=== PATIENT | male | born 1940 | race Caucasian/White ===

== ENCOUNTER 2019-10-24 11:54 | Emergency (ER) | payer OTHER ==
[~2019-10-24] VITALS: Ht 180.3 cm; Wt 83.5 kg
[2019-10-24] MEDS ORDERED: AUGMENTIN 875-1 EACH PO (12:54)
== END 2019-10-24 13:08 | disposition home or self-care (01) ==
LOC: ED 11:54
DX: S51.852A Open bite of left forearm, initial encounter (principal); S51.812A Laceration without foreign body of left forearm, initial encounter; E11.9 Type 2 diabetes mellitus without complications; Z87.891 Personal history of nicotine dependence; Z88.5 Allergy status to narcotic agent; W54.0XXA Bitten by dog, initial encounter
CPT/HCPCS: 12002; 90471; 90715; 99283-25

== ENCOUNTER 2021-10-19 05:58 | Inpatient (IN) | payer OTHER ==
[~2021-10-19] VITALS: Ht 180.3 cm; Wt 75.8 kg
--- NOTE | ~2021-10-19 | EKG ---
[facility] [address] [facility] [place], [place] [address] Draft EK completed, results pending confirmation PATIENT NAME: BILLYFRANCISCO LEO Electrocardiogram DATE OF : 38 PHYSICIAN: PRELIMINARY REPORT #: [id number] REPORT IS CONFIDENTIAL AND NOT TO BE RELEASED WITHOUT AUTHORIZATION
[~2021-10-19 05:58] MED LIST: AUGMENTIN 875-1 EACH PO
[2021-10-19] MEDS ORDERED: INSULIN AS100 UNIT/1 SUB-Q (06:25)
[2021-10-19] MEDS ORDERED: LANTUS100 UNITS/ SUB-Q (15:01)
--- NOTE | 2021-10-19 15:22 | NUR ---
medications reconciled. [facility], patient only uses glargine insulin as his sole medication
--- NOTE | 2021-10-19 16:04 | NUR ---
CALL TO DR. DUBOIS RE: PATIENT DIET. PATIENT IS ABLE TO TOLERATE SPOONS OF HONEY THICK WATER WHILE SITTING AT A 90 DEGREE ANGLE, OCCASIONAL COUGH. PATIENT IS TO REMAIN NPO FOR ST EVAL, CONTINUE IVF.
--- NOTE | 2021-10-19 18:02 | NUR ---
New admit from ER. DNR/DNI. Brought in by EMS with increasing weakness, N/V and fever for last 2 days. High BP on arrival. Anti nausea meds administered in ED. 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 CT abd/pelvis: gastric wall thickening (possibly gastritic). Protonix IV ordered. UA and resp panel negative. NSR with PVCs. Pt will have ECHO tomorrow to evaluate for cardiac origin of stroke. NIH=6. Pt seems to be leaning to R. Equal strenght in all 4 extremities. Positive for dysphagia and expressive aphasia. Follows all commands and responds to yes/no questions. At baseline Pt ambulated with cane and did not use O2 at home. NS at 100 ml/hr to R AC IV. wants to continue IVF despite elevated BP (to ensure hyperprefusion of the brain). Pt uses urinal. No BM today. Pt failed swallow eval. NPO until ST eval. BG was 363 at 5 pm. MRI of the head done and shows b/l cerebellar infarcts and few lacunar infarcts. Lovenox for anticoagulation.
--- NOTE | 2021-10-19 19:30 | NUR ---
RECEIVED REPORT FROM DAY SHIFT RN. PATIENT IS RESTING IN BED. NO NEEDS NOTED. BED ALARM ON FOR SAFETY.
--- NOTE | 2021-10-19 20:00 | NUR ---
PT REQUESTING THE TV OFF, ATTEMPT TO USE THE URINAL, RN NOW IN THE RM, VS TAKEN, ROOM STRAIGHTENED UP, ACCU CHECK ALSO COMPLETED AT THIS TIME
--- NOTE | 2021-10-19 20:20 | NUR ---
PATIENT ASSESMENT COMPLETED. PATIENT HAS GEN WEAKNESS NOTED. EXP APHASIA NOTED. PATIENT IS ON RA. ORAL CARE COMPLETED. BS CHECK AND SS PER ORDER. PATIENT IS ON TELE #6, SR. IV INFUSING PER ORDER. PATIENT REMAINS NPO AWAITING SPEECH EVAL. NO FURTHER NEEDS NOTED. CALL LIG IN REACH. BED ALARM ON FOR SAFETY.
--- NOTE | 2021-10-19 23:37 | NUR ---
PATIENT ASSISTED TO THE BSC A 2PA. PATIENT ABLE TO VOID. PATIENT IS VERY WEAK AND STRUGGLES TO FOLLOW DIRECTIONS. PATIENT IS BACK IN BED RESTING. IV INFUSING PER ORDER. CALL LIGHT IN REACH. BED ALARM ON FOR SAFETY.
--- NOTE | 2021-10-20 00:54 | NUR ---
PATIENT IS RESTING IN BED WITH EYES CLSOED, RR 17. CALL LIGHT IN REACH. BED ALARM ON FOR SAFETY.
--- NOTE | 2021-10-20 01:26 | NUR ---
PATIENT ASSISTED TO THE BSC A 2PA. PATIENT ABLE TO VOID. PATIENT IS BACK IN BED RESTING. PATIENTS CALL LIGHT IN REACH. BED ALARM ON FOR SAFETY.
--- NOTE | 2021-10-20 04:03 | NUR ---
PATIENT ASSISTED TO THE BSC A 2PA. PATIENT UNABLE TO VOID, INCONT OF URINE. PATIENT IS BACK IN BED RESTING. PATIENT HAD BOUT OF EMESIS. BEDDING CHANGED. NO FURTHER NEEDS NOTED. CALL LIGHT IN REACH. BED ALARM ON FOR SAFETY.
--- NOTE | 2021-10-20 05:33 | NUR ---
PATIENTS VITALS TAKEN AND RECORDED. PATIENT INCONTINENT OF URINE. PATIENTS ATTEND [facility] AND [facility] CARE COMPLETED. PATIENT CONTINUES TO HAVE EXP APHASIA. ORAL CARE COMPLETED. PATIENT REMAINS NPO PENDING SPEECH THERAPY EVAL. NO FURTHER NEEDS NOTED. CALL LIGHT IN REACH. BED ALARM ON FOR SAFETY.
--- NOTE | 2021-10-20 06:11 | NUR ---
NEW IV STARTED. PATIENT TOLERATED ACITIVY WELL. NO NEEDS NOTED. CALL LIGHT IN REACH.
--- NOTE | 2021-10-20 07:46 | NUR ---
Patient in bed sleeping, respirations even and non labored. No notable distress. Bed alarm intact. Personal supplies and call light within reach.
--- NOTE | 2021-10-20 09:28 | NUR ---
PT IS LAYING IN BED IN ROOMM. I&O AND VS CHARTED CALL LIGHT WITHIN REACH NO FURTHER TASKS AT THIS TIME
--- NOTE | 2021-10-20 10:30 | NUR ---
Patient resting in bed on right lateral side, respirations even and non labored. Patient has no distress. at bedside reading. Bed alarm remains intact. reports she will be here in hospital visiting with her for the day. Call light within reach.
--- NOTE | 2021-10-20 12:49 | NUR ---
got pt up in chair for meal. pt was having trouble feeding self, offered to help pt, pt declined. pt didnt want to eat anymore, seemed frustrated. got pt back into bed. call light within reach no further tasks at this time. in room
--- NOTE | 2021-10-20 14:19 | NUR ---
Patient working with physical therapy at edge of bed. Patient stood with for short period, two person assist using gait belt and fww. Patient has difficulty grasping items, appears to have impaired fine motor skills. remains at bedside assisting with cares. IV site patent, fluids infusing per provider order. Patient does not display discomfort or pain. No current needs. Personal supplies and call light within reach.
--- NOTE | 2021-10-20 17:16 | NUR ---
Oral care provided. Offered patient water, pt declined to drink. Patient back to sleep at this time. Bed alarm intact. No current needs. went home for the evening.
--- NOTE | 2021-10-20 18:47 | NUR ---
Spoke with pts spouse Bev. Yen Childress would like pt to go to a SNF. She declines and states she and her son will take care of pt. They live in a mobile home with 8 steps, She does not see this as a problem as they have friends to help him get into the home. She and son have been caring for him for a while as he has been weak.They have 3 walkers. She denies need for other equipment. She feels their only needs are for a ramp and possible help from [employer] in the future. Gave her the web site for [employer] and [employer]'s phone number for the future. She states they are financially ok at this time. Adult son lives with them and will assist her as needed. She drives, grocery shops, and does the household tasks. They would like HH on dc and Dr. Silva notified.
--- NOTE | 2021-10-20 20:04 | NUR ---
PT CALLED FOR HELP USING URINAL. 2PA WITH FWW TO HAVE PT STAND AND ASSIST IN USING URINAL. PT VOIDED, BEDDING CHANGED AND PT IS NOW BACK IN BED WITH CLEAN ATTENDS IN PLACE. PT DENIES FURTHER NEEDS. CALL LIGHT IS CLOSE AND BED ALARM IS ON.
--- NOTE | 2021-10-20 20:40 | NUR ---
CCU CALLED, PTS TELE LEADS WERE REMOVED BY PT. REPLACED TELE LEADS AND PLACED NEW BATTERY IN TELE. PT DENIES NEEDS, CALL LIGHT IS CLOSE AND BED ALARM IS ON.
--- NOTE | 2021-10-20 21:29 | NUR ---
PT IN BED, MUTE AT TIMES, GARBLED SPEECH, FOLLOWED INSTRUCTINS. ON ROOM AIR, TELE#[address], SR W OCC PVC'S, DENIES CP WHEN ASKED, MOVES ALL EXTREMITEIS VERY WELL IN BED, DID ASKED FOR URINAL EARLIER AT BEGINING OF SHIFT. INCONTINENT OF URINE, ATTENDS CHANGED. IV INFUSING LH, IVF INFUSING W/O PROBLEMS, BED ALARM ON, CALL LIHGT AT HANDS REACH. ON MILD THICKENED LIQUIDS MINCED MOIST FOODS
--- NOTE | 2021-10-20 21:30 | NUR ---
in to assist rn with vitals, accu check, pt incont of urine, nargis care and new attends provided, bed alarm remains in place, no further needs at this time
--- NOTE | 2021-10-20 23:45 | NUR ---
call light on, pt requested hob raised, water topped off, no further needs at this time, bed alarm is on
--- NOTE | 2021-10-21 00:46 | NUR ---
EYES CLOSED, NO DISTRESS, ONROOM AIR, IVF INFUSING W/O PROBLEMS, TURNS AND REPOSITIONS SELF, MOVES ALL EXTREMITIES, TELE#[address]
--- NOTE | 2021-10-21 02:55 | NUR ---
CBG 131, NO COVERAGE NEEDED. WAS INCONTIENT OF URINE, ATTENDS CHANGED, PLUS VOIDED SMALL AMOUNT URINAL. HOB ELEVATED, ON ROOM AIR, TELE#[address] SR WITH OCCASSIONAL SVPB'S, DENIES CP. COOP WITH ASSESSMENT. C/O H/A, MEDICATED WITH TYLENOL, CRUSHED IN PUDING. L SIDED DROOP PRESENT, HOB ELEVATED, MOIST NON PRODUCTIVE COUGH PRESENT AFTER TAKING MEDS, WIPED OWN MOUTH. EXTENDED HAND TOWARDS WATER. TOOK SEVERAL TRIES BUT ABLE TO DRINK THICKENED FLUIDS. GARBLED SPEECH PRESENT. MOVES ALL EXTREMITIES WELL. BED ALARM ON
--- NOTE | 2021-10-21 05:42 | NUR ---
Pt neuro checks w/o changes. on room air, continues to have L sided weaknes and facial droop, garbled speech, unable to swallow from L side of mouth, required several tries from R side. tele#[address], SR with occ PVC's. follows instructions sometimes, very uncoordinated LE and unsteady uncoordinated gait, was incontinent of urine and used urinal. IVF infusing. Bed alrm inplace, strong LE and arm movement, but unable to follow instructions for NIH assessments, Bed alarm in place
--- NOTE | 2021-10-21 05:55 | NUR ---
BED ALARM SET OFF, PT NEEDED THE URINAL, VS TAKEN, NEW ATTENDS IN PLACE, NO FURTHER NEEDS, BED ALARM IS SET
--- NOTE | 2021-10-21 07:32 | NUR ---
Patient in bed sleeping, respirations even and non labored. No notable distress. Bed alarm intact. Personal supplies and call light within reach. Close to RN station.
--- NOTE | 2021-10-21 09:54 | NUR ---
ADMINISTERED ZOFRAN BEFORE BREAKFAST PER ORDERS. ASSISTED AND OBSERVED PATIENT WITH BREAKFAST. ENCOURAGED PO INTAKE. FOLLOWED ASPIRATION PRECAUTIONS. PATIENT TOLERATED WELL WITH NO REPORTED NAUSEA OR VOMITING. WILL CONTINUE TO ADMINISTER ZOFRAN BEFORE MEALS, ENCOURAGE PO INTAKE, AND MONITOR FOR NAUSEA AND VOMITING. ASSISTED PATIENT WITH A FULL BED BATH, BRIEF CHANGE, AND REPLACED ALL LINENS WITH CLEAN LINENS. PATIENT TOLERATED WELL. FAMILY AT THE BEDSIDE. SN VARUN
--- NOTE | 2021-10-21 10:50 | NUR ---
Patient's speech has improved today, this RN able to understand what he is saying for the most part. Patient denies pain. Student nurse assisted pt with breakfast, per her report he tolerated small portions well. Patient's upper/lower cooling pan tender are equal/strong. Patient able to follow directions with prompting. IV site patent, fluids infusing per provider order. at bedside visiting and assisting with cares. No needs at this time. Personal supplies and call light within reach.
--- NOTE | 2021-10-21 11:36 | NUR ---
Clear ensure provided to patient, pt refused to drink. Patient requesting all lights off, turned one off and kept one on, education provided to pt and regarding staying on a good sleep schedule, understanding. Patient tired this afternoon, requesting to take a nap. No curent needs. Personal supplies and call light within reach.
--- NOTE | 2021-10-21 12:36 | NUR ---
Patient has not yet voided this morning. Bladder scan done, 503ml noted. Dr. Silva updated. No new orders, will continue to monitor.
--- NOTE | 2021-10-21 12:45 | NUR ---
CALL RECVD FROM VENESSA RN, PATIENTS AND DAUGHTER WISHING TO DISCUSS PLACEMENT OPTIONS. THIS RN DOWN TO ROOM. PATIENT LEE AND DAUGHTER AT BEDSIDE. PATIENT BEING ASSISTED UP TO CHAIR BY SHELLI DONOHUE AND SD GUARDADO. PATIENT STATES SHE FEELS THAT SHE WILL BE UNABLE TO CARE FOR THE PATIENT AFTER DISCHARGE. STATES SHE THOUGHT SHE WOULD BE ABLE TO PROVIDE CARE, BUT HAS REALIZED SHE CANNOT. DAUGHTER APPEARS TO BE IN AGREEMENT. LIST OF SNFS PROVIDED. PATIENT WOULD LIKE FOR PATIENT TO GO TO [facility] IT IS CLOSE ENOUGH FOR HER TO VISIT. DISCUSSED THAT MEDICARE WILL PAY FOR THE FIRST 20 DAYS OF THE PATIENT STAY , THEN THE SNF WILL EVALUATED THE PATIENT TO SEE IF FURTHER CARE IS NEED. AND DAUGHTER AGREED TO THIS PLAN, I WILL FAX CHART TO [facility] FOR REVIEW. DR. DUBOIS UPDATED.
--- NOTE | 2021-10-21 13:20 | NUR ---
PT IS LAYING IN BED AND DAUGHTER AT BEDSIDE. VITALS CHARTED. CALL LIGHT WITHIN REACH
--- NOTE | 2021-10-21 15:03 | NUR ---
Patient has urinary retention, voided 150ml, bladder scanned post void for [address] Silva ordered a maynard cath to be placed. Maynard catheter placed using sterile technique. Urojet used for comfort. Immediate return of 600ml yellow urine noted. Patient Tolerated well.
--- NOTE | 2021-10-21 16:45 | NUR ---
Patient reports he is nauseated. Cool cloth provided, hob elevated. Scheduled zofran 4mg odt admin.
--- NOTE | 2021-10-21 17:19 | EKG ---
[facility] [address] [facility] [place] [address] Signed Sinus rhythm with 1st degree AV block with occasional premature ventricular complexes Inferior infarct (cited on or before 19-OCT-2021) Abnormal ECG When compared with ECG of 19-OCT-2021 11:16, (Unconfirmed) premature supraventricular complexes are no longer present Confirmed by IGNACIO DUBOIS MD ([id number]) on 10/21/2021 5:18:58 PM Electronically Signed By: IGNACIO DUBOIS MD 10/21/21 1719 PATIENT NAME: FRANCISCO CERVANTES Electrocardiogram DATE OF : 38 PHYSICIAN: IGNACIO DUBOIS MD REPORT #: [id number] REPORT IS CONFIDENTIAL AND NOT TO BE RELEASED WITHOUT AUTHORIZATION
--- NOTE | 2021-10-21 21:30 | NUR ---
pt eyes closed, turns and repositions self very frequently in bed. la iv site patent, IVF infusing w/o problems. coop eith assessment, on room air, dim lungs at bases, facial dysphagia, on thickened liquids, meds given with pudin, hob elevated. rash noted r shoulder, and chest whenre old tele pads were. denies c/o itching. f/c in place, not chronic. pt fidgety, follows instrucctions. Bed alarm on
--- NOTE | 2021-10-21 23:15 | NUR ---
FIDGETTY IN BED, TURNS AND REPOSITIONS VERY OFTEN, IVF INFUSING, F/C PATENT BED ALARM ON, FOLLOWS INSTRUCTIONS, GARBLED SPEECH
--- NOTE | 2021-10-22 01:32 | NUR ---
RESTLESS AND FIDGETTY IN BED, GARBLED SPEECH, ON ROOM AIR, IVF INFUSING F/C PATENT, TOOK GOWN AND ATTENDS OFF. ALLEVYN TO COCCYX IN PLACE. ASPIRATION AND FALL PRECAUTIONS IN PLACE. BED ALARM ON
--- NOTE | 2021-10-22 02:50 | NUR ---
IN TO GET ACCU CHECK, NO FURTHER NEEDS AT THIS TIME, BED ALARM SET
--- NOTE | 2021-10-22 02:54 | NUR ---
PT FIDGETTY IN BED, TURNS AND REPOSITIONS VERY FREQUENTLY, TOOK GOWN AND ATTENDS OFF. RASH NOTED EARLIER R SHOULDER AND OLD TELE PADS IMPROVING. IVF INFUSING LFA, F/C PATENT, DRAINING CLEAR YELLOW URINE. ALLEVYN TO COCCCYX INTACT. GARBLED SPEECH, HOB ELEVATED TO COMFORT, ON ROOM AIR, COOP WITH ASSESMENT, PLEASANTLY CONFUSED. FOLLOWS INSTRUCTIONS
--- NOTE | 2021-10-22 03:00 | NUR ---
CALL LIGHT ON, PT GRABBING FOR EMESIS BAG, QUESTIONED PT ABOUT HAVING NAUSA, PT INDICATING YES, COOL WASH CLOTH PROVIED, RN INFORMED
--- NOTE | 2021-10-22 03:15 | NUR ---
PT C/O FEELING NAUSEATED, RESTLESS IN BED, DENIES C/O PAIN. MEDICATED WITH ZOFRAN, CBG 144 RECEIVED 1 UNIT SS INSULIN. IVF INFUSING. PULLING AT F/C, PATENT
--- NOTE | 2021-10-22 04:59 | NUR ---
Pt continues to be on room air, dim lungs sounds at bases, garbled speech, tolerating thickened liquids, took meds with puding, hob elevated. Was medicated with Tylenol per h/a and zofran per c/o n/v, no emesis. f/c patent, draining QS, pt has been pulling off and on, instructed not to, follows instructions sometimed, IVF infusing w/o problems, Bed alarm on
--- NOTE | 2021-10-22 08:44 | NUR ---
Patient tolerated a few bites of eggs, pudding and a couple sips of milk. Patient requesting to lay back down after eating. Patient reports he continues to be nauseated and dizzy. Patient requesting for lights to be off as he states the light bothers his eyes. Pt following commands, speech notably improved. Close to RN station. Call light within reach, bed alarm intact.
--- NOTE | 2021-10-22 10:56 | NUR ---
Patient's and daughter at bedside visiting and helping with cares. Patient resting with no distress at this time. No needs at this time. Call light within reach.
--- NOTE | 2021-10-22 12:45 | NUR ---
Patient repositioned at this time. Tried to get patient to drink water, pt declined. and daughter at bedside. No needs at this time.
--- NOTE | 2021-10-22 17:23 | NUR ---
Patient resting in bed, no distress. Patient remains on room air, respirations even and non labored. Patient's iv and maynard are patent. Offered patient to drink water, he declined. Bed alarm remains intact. Personal supplies and call light within reach.
--- NOTE | 2021-10-22 17:55 | NUR ---
REPORT RECEIVED FROM ELIAZAR RN - ASSUMING CARE TILL END OF SHIFT. PT ASLEEP ON SIDE IN BED - NO DISTRESS NOTED. PT STATES "NO" WHEN ASKED IF HE WANTS ANY DINNER. BED ALARM ON.
--- NOTE | 2021-10-22 21:46 | NUR ---
On room air, lungs dim at bases, garbled speech but much better than yesterday. follows instrucctions, cbg 174, received 1 unit ss Insulin and 8 units Semglee. turns and repositins sefl inbed, IVF infusing LH, patent, f/c patent. Meds given with puding, on thickened liquids, moist cough present after taking liquids. hob elevated for meds. cooperative, c/o h/a, medicated with Tylenol, uses call light. fidgetty in bed, alert to self
--- NOTE | 2021-10-22 23:13 | NUR ---
RESTING, O2 IN PLACE, HOB ELEVATED TO COMOFRT. NO DISTRESS, EYES CLOSED, CALL LIGHT AND FLUIDS AT HANDS REACH. TURNS AND REPOSITIONS SELF
--- NOTE | 2021-10-23 00:29 | NUR ---
RESTING, EYES CLOSED, NO DSITRESS, ON ROOM AIR, IVF INFUSING, F/C PATENT. TURNS AND REPOSITIONS SELF IN BED. BED ALARM ON
--- NOTE | 2021-10-23 02:35 | NUR ---
Pt calmer, on room air, IVF infusing w/o problems. f/c patent. cbg 168 received 1 unit ss insulin. coop with assessment
--- NOTE | 2021-10-23 05:18 | NUR ---
Pt has slept off and on, less restless /fidgetty in bed, IVF infusing w/o problems, On room air, lungs dim at bases, moist cough after po fluids intake, hob elevated, aspiration precautions in place. f/c patent. BS this shift 174 and 168, received ss insulin coverage. speech still garbled but more clear than before, follows instructions, Took gown and attends off. Bed alarm on
--- NOTE | 2021-10-23 07:47 | NUR ---
REPORT RECEIVED FROM NIGHT RN Malcom VAZQUEZ. CALL LIGHT IN REACH, PT RESTING IN BED, NO DISTRESS NOTED.
--- NOTE | 2021-10-23 08:05 | NUR ---
Patient got up to the chair. This POWDER MILL OPERATOR and JAYDE Dee transfered the patient with FWW. Washed his face and hands. Patient ate half of his breakfast. Call light within reach. No further needs at this time.
--- NOTE | 2021-10-23 08:36 | NUR ---
RN IN ROOM TO ADMINISTER SCHEDULED MEDICATIONS. GENERAL ASSEMBLER AND SENIOR ORACLE APPLICATIONS DEVELOPER IN ROOM CHANGING BED LINENS AND GETTING PT UP TO CHAIR. PT APPEARS TO HAVE HAD A BLOODY NOSE. PT SITTING UP RIGHT IN CHAIR TOLERATING IT WITHOUT DIFFICULTY. PT ATTEMPTING TO FEED SELF WITH RIGHT HAND, GENERAL ASSEMBLER ASSISTING. PT STATES HE IS IN DRU "HAVE BEEN HERE FOR 3 DAYS". PT ORIENTED TO HIS SELF. ASKS "WHO WON THE BASKETBALL GAME". PT ATTEMPTING TO USE REMOTE TO FIND [employer]OR[employer] [place]. CHAIR ALARM ON.
--- NOTE | 2021-10-23 10:00 | NUR ---
RN IN ROOM TO ASSESS PT - PT SITTING UP IN CHAIR BUT RESTLESS AND LEANING OVER IN FRONT OF SELF. PIVOT TRANSFERED BACK TO BED WITH 2 PERSON ASSIST. PT NOTED TO BE COVERING HIS EYES, STATES "YES" WHEN ASKED IF HE HAS A HEADACHE. LIGHTS DIMMED AND CURTAIN CLOSED. PRN TYLEONL PROVIDED. IV SITE FLUSHES WITHOUT DIFICULTY. REINFOCED WITH COBAN TO PREVENT PT FROM PULLING IT OUT. PT SPEECH IMPROVING, AWARE OF WHERE HE IS AND HIS BIRTHDATE. INCREASED APPETITE - TRYING TO FEED HIMSELF. COUGH NOTED WHEN USING STRAW WITH THICKEND LIQUIDS. BED ALARM ON.
--- NOTE | 2021-10-23 11:10 | NUR ---
RN ROUNDING ON PT. RESTING IN BED ON SIDE WITH EYES CLOSED. FAMILY AT BEDSIDE.
--- NOTE | 2021-10-23 12:23 | NUR ---
RN IN ROOM TO ADMINISTER 1 UNIT INSULIN. FAMILY AT BEDSIDE ASSISTING PT TO EAT LUNCH IN CHAIR. REQUEST TO KITCHEN FOR SPECIAL UTINSELS FOR PT TO USE. SOME COUGHING NOTED WITH EATING. ENCOURAGED PT TO TAKE SMALL SLOW BITES.
--- NOTE | 2021-10-23 18:24 | NUR ---
PATIENT REFUSED TO EAT DINNER SAYS HE JUST WANTS TO SLEEP RN NOTIFIED.
--- NOTE | 2021-10-23 18:43 | NUR ---
patient continues to have language dysarthritic, BUE/BLE normal limits, he has not be OOB for myself, however he is independent in repositioning his self. He his a/o x 4. he continues to need his meals mince/soft with moderate thick liquids.
--- NOTE | 2021-10-23 19:49 | NUR ---
Patient in bed, alert and oriented x3. Patient restless, moves about independently in bed. Patient has ho distress. Lin intact, patent with clear yellow urine noted. Patient reports he is feeling better today, no longer nauseated. No current needs. Bed alarm intact.
--- NOTE | 2021-10-23 23:46 | NUR ---
Patient in bed sleeping, no distress. Patient remains on 1L of oxygen per nc, respirations even and non labored. No needs at this time. Close to RN station.
--- NOTE | 2021-10-24 00:30 | NUR ---
In to check on pt. Patient resting in bed, eyes closed, easily woke to verbal stimuli, no distress. Patient's speech is garbled but easily understood. Patient able to follow commands, responding appropriately to my questions. Strong, equal paving machine operator in upper/lower extremities. Lin remains intact, clear yellow urine noted. Patient tolerated a few drinks of water. No further needs. Call light within reach.
--- NOTE | 2021-10-24 03:00 | NUR ---
Blood sugar reading 134.
--- NOTE | 2021-10-24 04:09 | NUR ---
Patient resting in bed, eyes closed, respirations even and non labored. Cpox intact, sp02 94% on room air. IV infusing per provider order. Personal supplies and call light within reach.
--- NOTE | 2021-10-24 07:14 | NUR ---
SHIFT REPORT EXCHANGED AT THE BEDSIDE. NO NEW EVENTS REPORTED. PATIENT SLEPT DURING REPORT. IVF INFUSING WITHOUT DIFFICULTY, GUADARRAMA CATHETER HAS ADEQUATE OUTPUT. PATIENT APPEARS TO BE IN NO ACUTE DISTRESS AT THIS TIME LAYING ON HIS LEFT SIDE. RESPIRATION AT 18.
--- NOTE | 2021-10-24 08:15 | NUR ---
Assisted the patient to the edge of bed, then with 2PA moved the patient from the bed to recliner.
--- NOTE | 2021-10-24 08:44 | NUR ---
SPOKE WITH SINCERE AT [facility], CHART RECVD SUNDAY FOR PLACEMENT. SINCERE STATES HE WILL START THE CHART REVIEW TODAY JIMMY THE HAVE BED AVAILABILITY.
--- NOTE | 2021-10-24 09:04 | NUR ---
patient is in bed laying on his right side, just wanting to rest.
--- NOTE | 2021-10-24 10:30 | NUR ---
CALLED TO PT ROOM BY OIL GAS AND PIPE TESTER SKIP AND BRAKE REPAIR SUPERVISOR LONNY. PT HAD ATTEMPTED TO MOVE SELF FROM CHAIR TO BED AND ALARM WAS IN PLACE BUT NOT ON. PT WAS ON KNEES HOLDING ONTO THE BED. PT DENIES PAIN OR INJURY ANYWERE. LONNY PLACED PT BACK IN BED. ST IN ROOM TO HELP WITH BREAKFAST. BED ALARM ON.
--- NOTE | 2021-10-24 11:12 | NUR ---
patient at the bedside, he is slightly restless but denies needs.
--- NOTE | 2021-10-24 12:55 | NUR ---
patient repositioned in the bed, HOB lowered and the patient is on his left side and irritated wanting to be left alone. he continues to have a poor appetite, but did take a few bites from lunch. the Patient and need continue reinforcement on the imporatance of slow small bites and his HOB being elevated especially with his meals.
--- NOTE | 2021-10-24 14:14 | NUR ---
RECVD CALL FROM SINCERE AT [facility]. HE STATES THE DNS IS CONCERNED WITH THE PATIENT LOW ORAL INTAKE. THIS INCOME TAX MANAGER I&OS AND SPOKE WITH MANDO LEYVA RN. MANDO STATES THAT THE PATIENT IS UNHAPPY WITH A MINCED MOIST DIET SO HE DOES NOT FEEL LIKE EATING AT TIME. MANDO RN STATES THAT PATIENT IS ABLE TO EAT WITH ASSISTANCE AND WAS ABLE TO EAT BREAKFAST. PATIENT LEE IS ALSO AT THE BEDSIDE ENCOUAGING INTAKE. SINCERE NOTIFIED AND HE WILL PASS THE INFORMATION ALONG TO THE DNS.
--- NOTE | 2021-10-24 16:17 | NUR ---
Medication given in applesauce. Patient finished the applesauce as a snack. He show no s/s of difficulty with the texture, just had to reminded him to take small slow bites.
--- NOTE | 2021-10-24 17:22 | NUR ---
maynard care provided, sacral dressing c/d/i, nargis care completed, repositioned patient in bed as well.
--- NOTE | 2021-10-24 19:05 | NUR ---
REPORT RECEIVED FROM OFFGOING RNMAISHA. PT RESTING IN BED WITH EYES CLOSED. DOES NOT WAKE DURING REPORT AT DOORWAY. CALL LIGHT IN REACH. ROOM IN VIEW OF RN STATION.
--- NOTE | 2021-10-24 21:00 | NUR ---
ANSWERED PATIENT CALL LIGHT. PATIENT DIDN'T MEAN TO PUSH THE BUTTON ON HIS BED BUT DID EXPRESS THAT HE WAS COLD. GAVE PATIENT A WARM BLANKET. NO OTHER NEEDS ADDRESSED AT THIS TIME. CALL KASH VANEGAS.
--- NOTE | 2021-10-24 21:21 | NUR ---
NEW BAG IVF INFUSING ORDERED. pt RESTING IN BED WITH EYES CLOSED, AWAKENS TO RN HANGING NEW BAG. BED PLACED IN LOW POSITION FOR pt SAFETY. BED ALARM ON.
--- NOTE | 2021-10-24 22:00 | NUR ---
maynard care done.
--- NOTE | 2021-10-24 22:04 | NUR ---
pt RESTING IN BED WITH EYES CLOSED, AWAKENS TO VOICE. VSS. CBG 191. GUADARRAMA CARE COMPLETE BY DEBBY PRATER. BED ALARM ON.
--- NOTE | 2021-10-24 22:59 | NUR ---
PT RESTING IN BED WITH EYES CLOSED. WAKES EASILY WHILE WRTIER AT BEDSIDE. PT ASSESSMENT COMPLETE. PT SAYS "YES" WHEN ASKED ABOUT PAIN. SAYS HE HAS A HEADACHE. PT UNABLE TO RATE PAIN NUMERICALLY. FLACC SCALE, 2. PRN ADMINISTERED. SEE EMAR. PT DENIES NASUEA AND SOB. LUNGS DIM IN BILATERAL BASES. NO COUGH NOTED DURING ASSESSMENT. IV FLUSHED WITH 10 ML NS. WNL. IVF INFUSING ORDERED. GUADARRAMA CATH IN PLACE, DRAINING CLEAR YELLOW URINE. PT DENIES FURTHER NEEDS AT THIS TIME. CALL LIGHT IN REACH. ROOM IN VIEW OF RN STATION.
--- NOTE | 2021-10-25 01:53 | NUR ---
PT RESTING IN BED WITH EYES CLOSED. RESPIRATIONS EVEN ANDUNLABORED. PT APPEARS TO BE SLEEPING. CALL LIGHT IN REACH. BED ALARM ACTIVE. ROOM IN VIEW OF RN STATION.
--- NOTE | 2021-10-25 03:42 | NUR ---
PT RESTING IN BED, WAKES EASILY TO VOICE AND TOUCH. PT REPORTS CONTINUED HEADACHE, STATES "NO" WHEN OFFERED TYLENOL. PT DENIES NAUSEA. NO SOB NOTED DURING ASSESSMENT. LUNG SOUNDS CLEAR THROUGHOUT. GUADARRAMA CATH DRAINING CLEAR YELLOW URINE. IVF INFUSING ORDERED. PT DENIES FURTHER NEEDS. CALL LIGHT INREACH. BED ALARM ACTIVE. ROOM IN VIEW OF RN STATION.
--- NOTE | 2021-10-25 05:47 | NUR ---
SOCIAL SECURITY ASSESSOR TO ROOM FOR SCHEDULED MEDICATION ADMINISTRATION. PT RESTING IN BED WITH EYES CLOSED. WAKES EASILY TO VOICE AND TOUCH. PILLS ADMINISTERED WITH APPLE SAUCE, PT TOLERATED WELL. DENIES FURTHER NEEDS. CALL LIGHT IN REACH. BED ALARM ACTIVE. ROOM IN VIEW OF RN STATION.
--- NOTE | 2021-10-25 07:50 | NUR ---
ASSESSMENT COMPLETED, GUADARRAMA INTACT, ALLEYN DRESSING INTACT POCT [phone]
--- NOTE | 2021-10-25 09:01 | NUR ---
PATIENT HAS NO DESIRE TO EAT BREAKFAST, HOWEVER DID TAKE HIS MEDICATION WITH APPLESAUCE. HE HAS BEEN REPOSITION.
--- NOTE | 2021-10-25 09:07 | NUR ---
OT IS GOING TO WORK WITH THE PATIENT, PATIENT VERBALIZES HE IS OKAY AND WILL WORK WITH HER.
--- NOTE | 2021-10-25 10:01 | NUR ---
PT IS LAYING IN BED. IN ROOM I&O AND VITALS CHARTED. CALL LIGHT WITHIN REACH NO FURHTER TASK AT THIS TIME
--- NOTE | 2021-10-25 10:04 | NUR ---
PT AT THE BEDSIDE, REQUESTED THE PATIENT TO BE SALINE LOCKED. I SALINE LOCKED THE PATIENT AND UPDATED THE PATIENT ON HIS CARES.
--- NOTE | 2021-10-25 12:08 | NUR ---
LUNCH DELIVERED, PATIENT SLEEPING, DOESNT WANT FOOD AT THIS TIME. WILL CONTINUE TO MONITOR.
--- NOTE | 2021-10-25 12:44 | NUR ---
AT THE BEDSIDE, MD AT BEDSIDE COMPLETING AN ASSESSMENT. REEDUCATED THE ON THE IMPORTANCE OF NOT FEEDING HIM UNLESS HE IS SITTING UPRIGHT, WHETER EDGE OF BED WITH ASSISTANCE OR THE HOB AT 50 DEGREES OR BETTER. SHE VERBALIZES UNDERSTANDING, HOWEVER SHE CONTINUES TO FEED HIM WHEN HE IS LAYING FLAT.
--- NOTE | 2021-10-25 13:33 | NUR ---
PT IS LAYING IN BED, IN ROOM. I&O AND VS CHARTED CALL LIGHT WITHIN REACH, NO FURTHER TASKS AT THIS TIME
--- NOTE | 2021-10-25 15:15 | NUR ---
Spoke with pt's . She states they had a change of plans and decided he could not go home as they cannot provide care. Discussed with chart has been sent to [facility], we have not have a reply. Asked where her next choice would be. She states they do not want to go out of town. Notified we are unable to hold patients. We will provide them with a safe discharge. If he is accepted out of town, they do not have to send him, but have the option of going home. Next choice is [facility]. I will fax the chart. states she received a call from [facility] and they stated they will have a bed open. I asked her when and she stated they had let her know they were not sure. I called [facility] and they stated they had mot had time to review the chart which was faxed the . They may have a bed open the end of the week or the beginning of next week. Chart faxed to [facility] in [place].
--- NOTE | 2021-10-25 15:55 | NUR ---
patient in his bed, laying on his left side, appears to be in NAD, respiration at 17.
--- NOTE | 2021-10-25 19:00 | NUR ---
RECEIVED REPORT FROM NAZIA NGUYEN RN. UPON ASSESSMENT PT LAYING IN BED AND REPORTS FEELING COLD. PT ALERT AND ORIENTED. AWARE HE IS IN DRU AND IN THE HOSPITAL. PT ABLE TO MOVE SELF AROUND IN BED. CLEANED PADS AND LIFT SHEET PLACED UNDER PT. PT TOOK PO MEDS WELL. NO COVERAGE NEEDED. GAVE LONG ACTING INSULIN AND PROVIDED WARM BLANKETS. BED ALARM IN PLACE. WILL CONTINUE TO MONITOR
--- NOTE | 2021-10-25 22:18 | NUR ---
PT ALARM WENT OFF, PT HANGIN ARM OFF BED. WHEN ASKED PT IF HE WAS OK HE REPORTS BEING COLD. COVERED PT BACK UP AND REPOSITIONED PT. BED ALARM ACTIVATED CALL LIGHT WITHIN REACH WILL CONTINUE TO MONITOR.
--- NOTE | 2021-10-25 23:41 | NUR ---
PT TOSSING AND TURNING IN BED. REMOVED GOWN . WHEN ASKED PT WHAT HE WAS DOIGN PT REPORTS IM COLD. COVERED PT UP . LAYING IN BED WITH EYES CLOSED BED ALARM AND CALL LIGHT WITHIN REACH WILL CONTINUE TO MONITOR
--- NOTE | 2021-10-26 00:43 | NUR ---
PT PRESSES CALL LIGHT HE IS TURNING SELF IN BED. PT DENIES ANY CONCNERS JUST REPORTS BEING COLD. BED ALARM IN PLACE, CALL LIGHT WITHIN REACH WILL CONTINUE TO MONITOR.
--- NOTE | 2021-10-26 02:51 | NUR ---
PT LAYING IN BED WITH EYES CLOSED. PT RESP EVEN AND UNLABORED. NO S.SX OF ANY DISTRESS NOTED. CALL LIGHT AND BED ALARM IN PLACE. WILL CONTINUE TO MONITOR.
--- NOTE | 2021-10-26 04:37 | NUR ---
PT RESTING IN BED. VSS, DRY ORAL MUCOSA NOTED. PROVIDED ORAL CARE AND GAVE PT APPLESAUCE. PT CONSUMED HALF OF APPLESAUCE. ADQUATE UOP FROM GUADARRAMA CALL LIGHT WITHIN REACH , BED ALARM IN PLACE WILL CONTINUE TO MONITOR.
--- NOTE | 2021-10-26 07:35 | NUR ---
REPORT RECEIVED. PT IN BED WITH EYES CLOSED. RESPITORY RATE IS EQUAL AND NONLABORED. BED ALARM IN PLACE. LR INFUSING AT 75ML/HR. PT IS VISIBLE FROM NURSING STATION.
--- NOTE | 2021-10-26 08:45 | NUR ---
RT COLLECTED RAPID COVID 19 SWAB AT THIS TIME WITH NO COMPICATIONS.
--- NOTE | 2021-10-26 09:30 | NUR ---
Notified in 929 report, pt has test + for covid on weekly testing. Will discuss with . Per Dr. Silva pt is dischargable. Will contact [facility] as there was miscommunication and pt was accepted by them on Sunday for admission this week when a bed opened.
--- NOTE | 2021-10-26 09:50 | NUR ---
ASSESSMENT COMPLETED. PT IN BED WQITH EYES CLSOED. ANSWERS QUESTIONS BUT DOESN'T OPEN EYES. REFUSED BREAKFAST THIS AM. PT SPEACH IS GARRBBLED. PT WITH UNCONTROLLED MOVEMENTS. PRIMING MIXTURE CARRIER STRENGTHS EQUAL 5/5. LUNGS DIM IN BASES. BOWEL TONES ACTIVE. COCCYX ALLEVYN INTACT. PT LYING ON RIGHT SIDE FOR COMFORT. PT COVID TEST CAME BACK POSITIVE SO PT WILL BE MOVED TO ROOM 121 AND WILL BE NOTIFIED. BED ALRM IN PLACE.
--- NOTE | 2021-10-26 09:55 | NUR ---
PT REFUSED ST VISIT THIS AM, STATING "I'M SICK."
--- NOTE | 2021-10-26 10:00 | NUR ---
Contacted Heriberto at [facility]. update pt is now Covid +. He checked with Director and they cannot take this pt for 14 days. I called Jaqu[facility] and Maureen states they will follow the current Health Dept. guidelines. I called [facility] and was transfer to the [facility]. She will call me back when she checks with the team for correct info.
--- NOTE | 2021-10-26 11:20 | NUR ---
Received a call from [facility]. Pt could admit today, but qill need to be on isolation for 10 days, staff must wear full PPE, only vaccinated staff can work with this pt, if pt is immunocompromise, he should be on isolation for 20 days. Called Maureen at [facility] and she states they have further info, pt would require a separate entrace for staff and visitors per the state. The are declining this pt.
--- NOTE | 2021-10-26 11:48 | NUR ---
PT WITH BLOOD SUGAR WNL. INSULINE HELD.
--- NOTE | 2021-10-26 12:30 | NUR ---
In and spoke with pts , Bev. [facility] cannot take Jayjay now as he is covid + for 14 days. I am checking with other SNFS in the area and also with the [facility] covid placement team. These SNFS are in the [place] area. Bev declines placement and states she will take pt home as she does not want to go out of town to visit. We also discussed if pt does not do well at home, he can admit to a SNF within the 30 period of discharge. I messaged [facility] as they had accepted this pt and asked if they could take him in 14 days if he fails at home. Awaiting response. Bev would like gait belt training and education for pts catheter.
--- NOTE | 2021-10-26 12:59 | NUR ---
PT ATTEMPTING TO MOVE AROUND IN BED. THIS NURSE AND PHYSICIAN SUPPORT COORDINATOR TO BEDSIDE TO ATTEMPT TO GET PT UP TO CHAIR. ONCE SITTING AT SIDE OF BED PT FLOPPED BACK DOWN IN BED AND REFUSED TO GET UP. PT REPROTS HE IS "FEELING SICK". I ASKED IF HE WAS NAUSEOUS AND PT NODDED HEAD YES. I ASKED IF HE WAS DIZZY AND PT NODDED HEAD YES. REPOSITIONED PT BACK IN BED OF LEFT SIDE. AT BEDSIDE DISCUSSING POC WITH NARROW GAUGE ENGINEER MELISSA.
--- NOTE | 2021-10-26 14:05 | NUR ---
Received call from Bev, she has changed her mind and now has decided she would like spouse to go to a covid SNF. Called [facility] in [place], [place]. They state they are no longer taking Covid pts. Will submit chart to through [facility] Covid 19 Surge Capacity Team for placement.
--- NOTE | 2021-10-26 14:16 | NUR ---
PT HAS TESTED COVID POSITIVE. WILL FOLLOW ABLE OR NEEDED
--- NOTE | 2021-10-26 14:21 | NUR ---
Face sheet, notes x 7 days, Covid test, med list, all therapy notes faxed to [facility] Placement team for covid + pts.
--- NOTE | 2021-10-26 16:00 | NUR ---
IN TO PT ROOM WITH PHYSICAL THERAPY. PT AGREEABLE TO TRY ANDWORK WITH THERAPY. PT ABLE TO STAND THEN QUICKLY SAT BACK DOWN TO LAY DOWN. PT REPORTING STILL FEELING SICK. ADRIÁNAN ADMINSTERED. PT HELPED IN BOOSTING UP SELF IN BED. BED ALARM PLACED BEFORE LEAVING ROOM.
--- NOTE | 2021-10-26 16:20 | NUR ---
GONE WHEN MONOCLONAL ANTIBODY NEEDED TO BE ADMSINTERED. CALLED ON PHONE AND IS AGREEBLE. REPORTS SHE WILL SIGN FOR TOMORROW.
--- NOTE | 2021-10-26 18:00 | NUR ---
PT IN BED. REFUSED TO GET OOB FOR DINNER AND REFUSED TO EAET DINNER. PT LYING ON RIGHT SIDE NOW. BED ALARM IN PLACE.
--- NOTE | 2021-10-26 19:00 | NUR ---
SHIFT REPORT RECEIVED FROM DAYSHIFT JAYDE CHRISTIANSON IN HALLWAY, pt COVID POSITIVE. pt AWAKE AND RESTING IN BED, BED ALARM ON FOR SAFETY. IV PUMP ALASHAMAR, JAYDE CHRISTIANSON TO HANG NEW BAG IV FLUIDS. IV SITE APPEARS WNL FROM DOORWAY. WILL MONITOR. NO NEEDS OR CONCERNS VERBALIZED, CALL LIGHT IN REACH.
--- NOTE | 2021-10-26 20:40 | NUR ---
ASSISTED PRIMARY RN DON. V/S AND I&O'S TAKEN AND CHARTED. GUADARRAMA CARE DONE.
--- NOTE | 2021-10-26 21:51 | NUR ---
assessment complete, scheduled meds given (see emar). allevyn to coccyx c/d/i unable to witness skin d/t dressing. speech garbled, but a/o to self and pt knows he is in [place]. bed alarm on for safety. pt argues with staff regarding repositioning, pt doesn't like to sit on back, able to change positons in bed and turn independently. iv site wnl, flushes easily. call light in reach. soraida lo compelted cath care.
--- NOTE | 2021-10-26 22:02 | NUR ---
COLORIST DYER IN ROOM, PT VOMITING UP SLIMY UNMEASURABLE MUCOUS, BROWNISH ANDREWS, CLEAR MUCOUS. MEDICATE WITH ZOFRAN. PT SAYS HE JUST WANTS TO SLEEP.
--- NOTE | 2021-10-26 22:10 | NUR ---
PER PARACHUTE RIGGER, pt HAD RECENT EMESIS- PARACHUTE RIGGER MEDICATING pt. WILL HOLD ON SCHEDULED 2200 MEDICATION AT THIS TIME PER CLINICAL JUDGEMENT.
--- NOTE | 2021-10-26 22:51 | NUR ---
assessment complete, scheduled meds given (see emar). allevyn to coccyx c/d/i, unable to witness skin d/t dressing. speech garbled, but a/o to self and pt knows he is in [place]. bed alarm on for safety. pt argues with staff regarding repositioning, pt doesn't like to sit on back, able to change positons in bed and turn independently. iv site wnl, flushes easily. call light in reach. soraida lo compelted cath care.
--- NOTE | 2021-10-26 23:45 | NUR ---
PER INSTRUCTIONAL TECHNOLOGY INSTRUCTOR, IV PUMP ALARMING AND IV SITE UNABLE TO BE FLUSHED. THIS RN IN ROOM TO ASSESS. IV SITE HAD BEEN PULLED, CATHETER TIP INTACT. NEW IV, 22G TO RIGHT FOREARM PLACED BY THIS RN, BRISK BLOOD RETURN NOTED. pt TOLERATED WELL, TOURNIQUET REMOVED FOLLOWING IV PLACEMENT. IV FLUIDS RESUMED AND SCHEDULED MEDICATION GIVEN ALONG WITH PRN TYLENOL. pt SWALLOWING WELL. NO COUGHING NOTED, ASPIRATION PRECAUTIONS IN PLACE. BED ALARM REMAINS ON AND CALL LIGHT IN REACH.
--- NOTE | 2021-10-27 02:00 | NUR ---
ROUNDED ON pt, pt RESTING QUIETLY IN BED ON RA. RR EVEN AND UNLABORED. CALL LIGHT PUSHED BY pt 1-2X WITHIN 5 MINUTES, pt WAS RESTING ON RIGHT SIDE, ASSUMED ACCIDENT. NO NEEDS OR CONCERNS VERBALIZED BY pt. CHIARA REMAINS PATENT. IV SITE WNL, FLUIDS INFUSING DIRECTED. BED ALARM REMAINS ON AND CALL LIGHT IN REACH. WILL CONTINUE TO MONITOR AND ENCOURAGE PO INTAKE WHEN pt IS AWAKE.
--- NOTE | 2021-10-27 03:15 | NUR ---
ORDERED ACCUCHECK COMPELTE, RESULT IN 190'S- ORAL CARE COMPELTED AT THIS TIME MOUTH/TONGUE DRY. pt TOLERATED WELL, ENCOURAGED PO INTAKE. FRESH WATER AND ENSURE PER DIET ORDER PROVIDED, pt DECLINED. LEFT AT BEDSIDE. IV SITE WNL, FLUIDS INFUSING DIRECTED. pt ABLE TO REPSOTION SELF AND TURN SELF IN BED, RECENTLY TURNED FROM RIGHT SIDE TO LEFT SIDE W/O ASSITANCE. GUADARRAMA REMAINS PATENT, BED ALARM ON AND CALL LIGHT IN REACH.
--- NOTE | 2021-10-27 05:03 | NUR ---
CALL LIGHT ANSWERED, APPEARS ACCIDENTLY PUSHED WHEN Pt TURNED SELF IN BED. BED ALARM REMAINS ON. BOTH WATER AND ENSURE SPILLED ON FLOOR, FRESH WATER PROVIDED PER DIET ORDER. IV SITE WNL, FLUIDS INFUSING DIRECTED. CALL LIGHT IN REACH. PILLOW INBETWEEN KNEES FOR SKIN PROTECTION. VSS AND I&O'S COMPLETE.
--- NOTE | 2021-10-27 07:01 | NUR ---
SCHEDULED MED GIVEN, SEE EMAR. VSS, BED ALARM REMAINS ON AND CALL LIGHT IN REACH. NO ISSUES SWALLOWING NOTED.
--- NOTE | 2021-10-27 08:30 | NUR ---
Received a call from pts and she has changed her mind and is now planning on taking pt home today. She wants to know if pt can be transported. Let her know I spoke with the wc van yesterday and Dong agreed to transport pt today with carly. I asked if they picked up a transport chair from [facility] and they did not. Let her know pt will still need a wc and a commode. She wanted to know if he could use his walker with a seat for transport. Let her know they will only transport with a wc. She also wanted toknow what time pt will dc, let her know I will see Dr. Silva at 0930 and call her back. They will get a wc and commode.
--- NOTE | 2021-10-27 08:35 | NUR ---
Received Pt sleeping comfortably (turned on L side). Lin below bladder, with no loops and off the floor. LR infusing. BG is 173 this morning.
--- NOTE | 2021-10-27 09:00 | NUR ---
Spoke with Dr. Silva and updated pt now planning on take pt home. He is admitting a pt in CCU and states he will have orders completed by noon. I will schedule transport. Updated is picking up a wc and commode. Called and spoke with the wc van. They can transport pt at 12:30 and will pick pt up at the back of the hospital.
--- NOTE | 2021-10-27 10:00 | NUR ---
Pt will be discharging home with home health. brought in wheelchair. Pt will be transported via w/c van. ingot supervisor time 12:30 pm.
[2021-10-27] MEDS ORDERED: NYSTATIN100000 UN1 PO (10:47)
[2021-10-27] MEDS ORDERED: AMLODIPINE BESYL5 MG PO (10:48)
[2021-10-27] MEDS ORDERED: CYPROHEPTADINE H4 MG PO (10:48)
[2021-10-27] MEDS ORDERED: TAMSULOSIN HCL0.4 MG PO (10:48)
[2021-10-27] MEDS ORDERED: LO-DOSE ASPIRIN81 MG PO (10:49)
[2021-10-27] MEDS ORDERED: LANTUS100 UNITS/ SUB-Q (10:49)
--- NOTE | 2021-10-27 11:10 | NUR ---
Recieved orders for . had requested [facility]. Called and spoke with Ronna at [facility]. They will need an extension until the end of October for admission.
--- NOTE | 2021-10-27 12:32 | NUR ---
Pt's BG was 173. No coverage needed.
--- NOTE | 2021-10-27 12:41 | NUR ---
Pt discharged home with home health. This sports book writer called Bev with discharge instructions. New diet amd activity level explained to . Pt is to follow up with PCP regarding urinary retention. The plan is for PCP to refer Pt to urologist. Lin drainage bag changed to leg bag prior to discharge.
--- NOTE | 2021-10-27 13:46 | NUR ---
Called and spoke with pts . Pt arrived per van. Updated I sent chart to [facility] and they will call her for an appt.
--- NOTE | 2021-10-28 11:31 | NUR ---
Notified by [facility], pt primary [facility] is [facility] and they will need the [facility] and [facility]. Faxed to Daria at [facility] for and HO care.
== END 2021-10-27 12:30 | disposition home health service (06) | DRG 64 ==
LOC: ED 05:58 → MS 11:59
PROVIDERS: ADMIT Internal Medicine; ATTEND Internal Medicine
PROC: 3E0330M Introduction of Antineoplastic, Monoclonal Antibody, into Peripheral Vein, Percutaneous Approach (ICD-10-PCS; principal; 2021-10-26)
DX: I63.89 Other cerebral infarction (principal); U07.1 COVID-19; J94.8 Other specified pleural conditions; Z20.822 Contact with and (suspected) exposure to COVID-19; Z66 Do not resuscitate; I35.0 Nonrheumatic aortic (valve) stenosis; R27.0 Ataxia, unspecified; R47.1 Dysarthria and anarthria; R13.12 Dysphagia, oropharyngeal phase; N40.1 Benign prostatic hyperplasia with lower urinary tract symptoms; R29.705 NIHSS score 5; R33.8 Other retention of urine; R11.0 Nausea; I10 Essential (primary) hypertension; I25.10 Atherosclerotic heart disease of native coronary artery without angina pectoris; Z87.891 Personal history of nicotine dependence; Z95.1 Presence of aortocoronary bypass graft; Z95.5 Presence of coronary angioplasty implant and graft; Z98.890 Other specified postprocedural states; Z88.5 Allergy status to narcotic agent; Z88.8 Allergy status to other drugs, medicaments and biological substances; Z79.4 Long term (current) use of insulin
CPT/HCPCS: 36415; 51701; 70450; 70551; 74018; 74177; 80053; 80061; 81001; 82803; 83036; 83690; 85025; 87502; 92526; 92610; 93005; 93010; 93306; 93880; 97110; 97162; 97167; 97530; 99285-25; A9270; C9113; C9803; J1200; J1650; J1790; J1815; J2405; J7030; J7121; Q9967; U0003